=== PATIENT | female | born 1945 | race Native Hawaiian/Other Pacific Islander ===

== ENCOUNTER 2019-02-18 09:15 | Outpatient (CLI) | payer OTHER, MEDICARE ==
[2019-02-18 09:38] LABS: PLATELET COUNT 271 K/uL (152-353)
[2019-02-18 09:57] LABS: POTASSIUM 4.5 mmol/L (3.6-5.2)
== END 2019-02-18 23:59 | disposition home or self-care (01) ==
LOC: LABW 09:15
PROVIDERS: Internal Medicine
DX: E55.9 Vitamin D deficiency, unspecified (principal); I12.9 Hypertensive chronic kidney disease with stage 1 through stage 4 chronic kidney disease, or unspecified chronic kidney disease; N18.3 Chronic kidney disease, stage 3 (moderate); R82.998 Other abnormal findings in urine
CPT/HCPCS: 36415; 80053; 81000; 82043; 82306; 82570; 83735; 84100; 84155; 85027; 87086; 87088

== ENCOUNTER 2019-08-24 09:36 | Outpatient (CLI) | payer OTHER, MEDICARE ==
[2019-08-24 09:59] LABS: PLATELET COUNT 230 K/uL (152-353)
[2019-08-24 10:31] LABS: POTASSIUM 3.9 mmol/L (3.6-5.2)
== END 2019-08-24 20:54 | disposition home or self-care (01) ==
LOC: LABW 09:36
PROVIDERS: Internal Medicine
DX: N18.3 Chronic kidney disease, stage 3 (moderate) (principal); E03.9 Hypothyroidism, unspecified
CPT/HCPCS: 36415; 80053; 81000; 82330; 82570; 83735; 84100; 84155; 84439; 84443; 85027

== ENCOUNTER 2020-02-20 08:11 | Outpatient (CLI) | payer OTHER, MEDICARE ==
[2020-02-20 09:18] LABS: POTASSIUM 4.1 mmol/L (3.6-5.2)
[2020-02-20 09:55] LABS: PLATELET COUNT 254 K/uL (152-353)
== END 2020-02-20 20:25 | disposition home or self-care (01) ==
LOC: LABW 08:11
PROVIDERS: Nurse Practitioner
DX: N18.3 Chronic kidney disease, stage 3 (moderate) (principal); E03.8 Other specified hypothyroidism; R82.998 Other abnormal findings in urine
CPT/HCPCS: 36415; 80053; 81000; 82330; 82570; 83735; 84100; 84155; 84439; 84443; 85027; 87077; 87088

== ENCOUNTER 2020-08-21 08:17 | Outpatient (CLI) | payer OTHER, MEDICARE ==
[2020-08-21 08:49] LABS: PLATELET COUNT 274 K/uL (152-353)
[2020-08-21 09:01] LABS: POTASSIUM 3.6 mmol/L (3.6-5.2)
== END 2020-08-21 21:02 | disposition home or self-care (01) ==
LOC: LABW 08:17
PROVIDERS: ATTEND Internal Medicine
DX: N18.30 Chronic kidney disease, stage 3 unspecified (principal); E03.8 Other specified hypothyroidism
CPT/HCPCS: 36415; 80053; 81000; 82330; 82570; 83735; 84100; 84155; 84439; 84443; 85027

== ENCOUNTER 2021-02-19 07:51 | Outpatient (CLI) | payer OTHER, MEDICARE ==
[2021-02-19 08:45] LABS: PLATELET COUNT 211 K/uL (152-353)
== END 2021-02-19 21:18 | disposition home or self-care (01) ==
LOC: LABW 07:51
PROVIDERS: ATTEND Nurse Practitioner
DX: N18.30 Chronic kidney disease, stage 3 unspecified (principal)
CPT/HCPCS: 36415; 80053; 81000; 82330; 82570; 83735; 84100; 84155; 85027

== ENCOUNTER 2021-07-09 07:56 | Outpatient (CLI) | payer OTHER, MEDICARE ==
[2021-07-09 08:45] LABS: POTASSIUM 3.9 mmol/L (3.6-5.2)
[2021-07-09 08:47] LABS: PLATELET COUNT 227 K/uL (152-353)
== END 2021-07-09 19:07 | disposition home or self-care (01) ==
LOC: LABW 07:56
PROVIDERS: ATTEND Internal Medicine
DX: N18.30 Chronic kidney disease, stage 3 unspecified (principal); E03.8 Other specified hypothyroidism; Z79.899 Other long term (current) drug therapy
CPT/HCPCS: 36415; 80053; 81000; 82330; 82570; 83036; 83735; 84100; 84155; 84439; 84443; 85027